=== PATIENT | male | born 1945 | race Caucasian/White ===

== ENCOUNTER 2017-04-05 06:14 | Inpatient (IN) | payer OTHER ==
[2017-03-18 11:30] VITALS: BMI 31.0
--- NOTE | 2017-03-18 12:10 | PAT Medication Instructions ---
Service Date Mar 18, 2017. Current Home Medication List Aspirin (Aspirin Ec), 81 MG PO QAM Atorvastatin (Lipitor), 40 MG PO QPM Clopidogrel (Plavix), 75 MG PO QPM Fish Oil ([place]-3), 1 CAP PO BID Furosemide (Lasix), 20 MG PO QAM Glimepiride (Glimepiride), 1 TAB PO QAM Metformin Hcl (Glucophage Ext Rel), 1,000 MG PO BID Metoprolol Tartrate (Lopressor) (Lopressor), 50 MG PO BID Multivitamins/Minerals (Mvi With Minerals), 1 TAB PO QAM Nifedipine Ext Rel (Procardia Xl Ext Rel), 90 MG PO QAM Nitroglycerin (Nitrostat), 0.4 MG UT PRN [Garlique], 1 TAB PO QAM [Milk Thistle], 2 TAB PO QAM Medication Instructions For Your Scheduled Surgery Clopidogrel (Plavix), 75 MG PO QPM (patient will check with chair car driver for instructions- let them know in order to get spinal anesthesia you have to be off Plavix for 7 days) Nitroglycerin (Nitrostat), 0.4 MG UT PRN (if needed) - Hold the following medications 2 weeks prior to surgery: Garlique 1 TAB PO QAM Milk Thistle 2 TAB PO QAM Fish Oil ([place]-3), 1 CAP PO BID - Hold the following medications 48 hours prior to surgery: Metformin Hcl (Glucophage Ext Rel), 1,000 MG PO BID - Hold the following medications the morning of surgery: Multivitamins/Minerals (Mvi With Minerals), 1 TAB PO QAM Furosemide (Lasix), 20 MG PO QAM Glimepiride (Glimepiride), 1 TAB PO QAM - Take the following medications the morning of surgery with a sip of water: Nifedipine Ext Rel (Procardia Xl Ext Rel), 90 MG PO QAM Metoprolol Tartrate (Lopressor) (Lopressor), 50 MG PO BID Aspirin (Aspirin Ec), 81 MG PO QAM - Take the following medications as scheduled the night before surgery: Metoprolol Tartrate (Lopressor) (Lopressor), 50 MG PO BID Atorvastatin (Lipitor), 40 MG PO QPM If you have any questions please call us at [phone] or [phone] ( [place]) or [phone]
[2017-03-18 13:37] LABS: BASO % 0.1 %; BASO ABS # 0.01 K/uL (0-0.2); COMPLETE YES; EOS % 2.4 %; LYMPH % 36.2 %; LYMPH ABS # 2.45 K/uL (1.2-3.4); MEAN CELL VOLUME 92.3 fL (80-100); MEAN CORPUSCULAR HEMOGLOBIN 31.5 pg (25-34); MEAN CORPUSCULAR HGB CONC 34.1 g/dl (32-36); MEAN PLATELET VOLUME 8.9 fL (7.4-10.4); MONO % 8.1 %; NEUT % 53.2 %; PLATELET COUNT 195 K/uL (130-400); RED BLOOD COUNT 4.44 M/uL (4.7-6.1); WHITE BLOOD COUNT 6.76 K/uL (4.8-10.8)
[2017-03-18 13:40] LABS: URINE APPEARANCE CLEAR (CLEAR); URINE BILIRUBIN NEG (NEG); URINE COLOR YELLOW; URINE NITRITE NEG (NEG); URINE SPECIFIC GRAVITY 1.017 (1.000-1.030); UROBILINOGEN NEG (NEG); ZZUR CULT IF INDIC CLEAN CATCH NO
[2017-03-18 13:50] LABS: MANUAL MICROSCOPIC REQUIRED? NO; REVIEW REQ? NO
[2017-03-18 13:51] LABS: PROTHROMBIN TIME (PATIENT) 10.9 SECONDS (9.0-12.0)
[2017-03-18 13:57] LABS: BUN/CREATININE RATIO 14.9 (10-20); CALCIUM 9.1 mg/dl (8.5-10.1); CREATININE 1.1 mg/dl (0.60-1.40); POTASSIUM 4.4 mmol/L (3.5-5.1)
[2017-03-18 14:02] LABS: ESTIMATED AVERAGE GLUCOSE 148 mg/dl; HA1C FLAG Normal (Normal)
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
[2017-04-05] VITALS (10 sets, daily range): BP systolic 125–167; BP diastolic 72–87; PULSE 54–74; TEMP 36.2–36.8; O2SAT 96–100; Ht 177.8 cm; Wt 97.5 kg
[~2017-04-05] VITALS: Ht 177.8 cm; Wt 97.5 kg
[2017-04-05] MEDS: VANCOMYCIN INJ 400 MG in NSS 100ML IR SCH ×2 (06:00→09:45)
[~2017-04-05 06:14] MED LIST: ACETAMINOPHEN 500 MG TAB PO SCH; ASPI81TA28 PO; ATOR-24 PO; CEFAZOLIN 2000 MG/60 ML D5W 60 ML IV SCH; CLOP1TAB15 PO; CeleBREX 200 MG CAP PO SCH; FAMOTIDINE 20 MG TAB PO SCH; FURO-85 PO; GABAPENTIN 300 MG CAP PO SCH; GARLIQUE PO; GLIM2TAB2 PO; LACTATED RINGER'S 1000ML 1,000 ML IV SCH; LACTATED RINGER'S 1000ML IV SCH; METF1TAB53 PO; METO50TA16 PO; METOCLOPRAMIDE HCL 10 MG TAB PO SCH; MILK THISTLE PO; MULT-513 PO; NIFE30TA83 PO; NTRGSL/4 UT; OMEG10007 PO; OXYCODONE HCL 10 MG TABCR (OXYCONTIN) PO SCH; ROPIVACAINE 5MG/ML 30 ML 150 MG, BUPIVACAINE/EPINEPHR 0.5% MPF 30 ML, KETOROLAC TROMETH... INFIL SCH
[2017-04-05] MEDS: TRANEXAMIC ACID INJ 1,000 MG in SODIUM CHLORIDE 0.9% 100ML 100 ML IV SCH ×2 (06:30→08:10)
[2017-04-05] MEDS ORDERED: BUPIVACAINE 0.5 % 5 MG/1 ML PF 10ML VIAL ONE (06:31)
[2017-04-05] MEDS ORDERED: FENTANYL CITRATE INJ 50 MCG/1 ML 2 ML VIAL ONE (06:39)
[2017-04-05] MEDS ORDERED: PROPOFOL IV EMULSION 10 MG/ML 20 ML VIAL IV ONE (06:39)
[2017-04-05] MEDS ORDERED: LIDOCAINE HCL 2% 2 ML VIAL (20MG/ML) ONE (06:39)
[2017-04-05] MEDS ORDERED: MIDAZOLAM HCL 1 MG/ML 2ML VIAL ONE (06:39)
--- NOTE | 2017-04-05 06:47 | History & Physical Bridge Note ---
H&P Re-Evaluation Bridge Note: I have examined the patient, reviewed the History & Physical and in the interval since the performance of the History & Physical I have noted the following changes of clinical significance: No changes noted
[2017-04-05] MEDS ORDERED: ORTHO JOINT ANESTHETIC ONE (07:01)
[2017-04-05] MEDS ORDERED: BUPIVACAINE/EPINEPHRINE 0.25% 1:200,000 30 ML VIAL ONE (07:01)
[2017-04-05] MEDS ORDERED: POVIDONE-IODINE OP SOLN 30 ML BTL ONE (07:01)
[2017-04-05] MEDS ORDERED: BACITRACIN 50000 UNIT VIAL ONE (07:02)
[2017-04-05] MEDS ORDERED: FENTANYL CITRATE INJ 50 MCG/1 ML 2 ML VIAL IV PRN (07:15)
[2017-04-05] MEDS ORDERED: EpHEDrine SULFATE INJ 50 MG/ML AMP IV PRN (07:15)
[2017-04-05] MEDS ORDERED: ONDANSETRON INJ 2 MG/ML 2 ML VIAL IV PRN ×2 (07:15→09:45)
[2017-04-05] MEDS ORDERED: ATROPINE SULFATE 0.1 MG/ML 5ML SYR IV PRN (07:15)
[2017-04-05] MEDS ORDERED: ASPIRIN 81 MG ECTAB PO ONE (07:27)
[2017-04-05] MEDS ORDERED: NURSING VERBAL MED ORDER ONE (07:45)
[2017-04-05] MEDS: POLYMYXIN B SULFATE 100,000 UNITS in NSS 100ML IR SCH ×2 (09:33→09:45)
[2017-04-05] MEDS: SODIUM CHLORIDE 0.9% 1000ML 1,000 ML IV SCH ×3 (09:40→21:41)
--- NOTE | 2017-04-05 09:40 | [facility] Post Operative Brief Note ---
Immediate Operative Summary Operative Date April 05, 2017. Pre-Operative Diagnosis Right knee degenerative joint disease Post-Operative Diagnosis same Procedure(s) Performed Right Total Knee Arthroplasty, Cemented Surgeon Dr. Dioni Howe Sanitation Lead Surgeon(s) Vincenzo Galdamez PA-C Estimated Blood Loss 5 ML Findings severe dz Specimens a. Right knee bone and tissue Complication(s) None Disposition Recovery Room / PACU
[2017-04-05] MEDS ORDERED: ALUMINUM/MAGNESIUM/SIMETH (MAALOX MAX) 30 ML UDC PO PRN (09:45)
[2017-04-05] MEDS ORDERED: ZOLPIDEM TARTRATE 5 MG TAB PO PRN (09:45)
[2017-04-05] MEDS ORDERED: BISACODYL 10 MG SUPP PR PRN (09:45)
[2017-04-05] MEDS ORDERED: TRAMADOL HCL 50 MG TAB PO PRN (09:45)
[2017-04-05] MEDS ORDERED: MoRPHine SULFATE 2 MG/ML CARP IV PRN (09:45)
[2017-04-05] MEDS ORDERED: SOD PHOSPHATE/SOD BIPHOSPHATE ENEMA 132 ML BTL PR PRN (09:45)
[2017-04-05] MEDS ORDERED: KETOROLAC TROMETHAMINE 15 MG/ML VIAL IV. PRN (09:45)
[2017-04-05] MEDS ORDERED: MAGNESIUM HYDROXIDE SUSP 30 ML UDC PO PRN (09:45)
[2017-04-05] MEDS ORDERED: DiphenhydrAMINE HCL 50 MG/ML VIAL IV PRN (09:45)
[2017-04-05] MEDS ORDERED: METOCLOPRAMIDE HCL INJ 5 MG/ML 2 ML VIAL IV PRN (09:45)
[2017-04-05] MEDS ORDERED: NITROGLYCERIN 0.4 MG SL PER TAB CHARGE UT PRN (09:45)
--- NOTE | 2017-04-05 12:16 | Anesthesiology Progress Note ---
Anesthesia Post Op Note Date & Time April 05, 2017 at 12:16 Vital Signs Pain Intensity: 0.0 Vital Signs Past 12 Hours Date Time Temp Pulse Resp B/P Pulse Ox O2 Delivery O2 Flow Rate FiO2 04/05/17 12:01 36.2 58 18 132/72 100 Nasal Cannula 2.0 04/05/17 11:32 59 19 129/75 98 Nasal Cannula 2.0 04/05/17 11:01 36.4 54 18 125/73 98 Nasal Cannula 2.0 04/05/17 11:00 98 Nasal Cannula 2.0 04/05/17 10:50 36.5 56 14 118/70 98 Nasal Cannula 2 04/05/17 10:40 56 12 117/69 100 Nasal Cannula 2 04/05/17 10:30 54 15 122/74 100 Mask 10 04/05/17 10:20 56 10 121/73 100 Mask 10 04/05/17 10:14 36 59 16 111/66 100 Mask 10 04/05/17 06:43 36.3 66 20 155/87 96 Room Air Notes Mental Status: alert / awake / arousable, participated in evaluation Pt Amnestic to Procedure: Yes Nausea / Vomiting: adequately controlled Pain: adequately controlled Airway Patency, RR, SpO2: stable & adequate BP & HR: stable & adequate Hydration State: stable & adequate Neuraxial Anesthesia: was administered, sensory block is resolving Anesthetic Complications: no major complications apparent
[2017-04-05] MEDS: ACETAMINOPHEN 500 MG TAB PO SCH ×2 (13:37→21:39)
[2017-04-05] MEDS ORDERED: TRANEXAMIC ACID INJ 1,000 MG in SODIUM CHLORIDE 0.9% 100ML 100 ML IV SCH (16:00)
[2017-04-05] MEDS: CEFAZOLIN IV 2,000 MG in DEXTROSE 5% 50ML 50 ML IV SCH ×2 (16:08→23:09)
[2017-04-05] MEDS: OXYCODONE HCL IR 5 MG TAB (IMMEDIATE RELEASE) PO PRN ×2 (16:08→16:48)
--- NOTE | 2017-04-05 17:32 | OPERATIVE REPORT ---
DATE OF OPERATION: 04/05/2017 PREOPERATIVE DIAGNOSIS: Degenerative arthritis, right knee. POSTOPERATIVE DIAGNOSIS: Same. PROCEDURE: Right total knee replacement. SURGEON: Dr. Howe. MASTER COASTWISE YACHT: ALICIA Murdock ANESTHESIA: Spinal. TOURNIQUET TIME: 75 minutes at 250 mmHg. DRAINS: Hemovac x2. CULTURES: None. COMPLICATIONS: None. COMPONENTS USED: [employer] Journey Knee System: Femur size 5, tibia size 5 x 11 constrained, patella size 35. NOTE: Vincenzo Galdamez was present and assisted throughout due to the complicated nature of this case. He helped with preparation and set up and first assisted throughout. He also personally closed the capsule, subcutaneous and skin layers and applied the postoperative dressing. DESCRIPTION OF PROCEDURE: Following satisfactory spinal, the patient was supine. A tourniquet was placed. The lower extremity was prepared with ChloraPrep and draped sterilely. It was decided to inflate the tourniquet because of a history of use of Plavix and low-dose aspirin. The patient seen to have bleeding when the local anesthetic was placed. The tourniquet was inflated. A midline incision was made with a median parapatellar arthrotomy. The knee showed severe grade 4 disease throughout with absence of the anterior cruciate ligament. The patient's tear cruciate ligament was excised, all osteophytes were excised. Using the IM alignment system with a 5 degree valgus cut, the distal femur was sized and shaped for a size 5 posterior stabilized component. When all cuts were completed, attention was turned to the tibia. The tibia was resected with the extramedullary alignment guide in neutral with a 3 degree posterior slope. The patella was freehand cut. Soft tissue balancing was completed and a trial reduction showed good tensioning stability on the collateral ligaments, stable range of motion, and the patella tracked well. The trial components were removed. The capsule was prepared with the orthopedic cocktail and after irrigation, the components were cemented using Simplex G cement. A Betadine soak was performed. After 5 minutes, the Betadine was irrigated. Two drains were placed. The arthrotomy was closed with a running suture of 0 V-Loc and reinforced with #1 Vicryl. The subcutaneous tissues were closed with 2-0 Vicryl and the skin with a running subcuticular stitch of 3-0 V-Loc. Dermabond and a dry dressing were applied. The tourniquet was deflated. The patient was returned to his bed in stable condition. I attest to the content of the Intraoperative Record and any orders documented therein. Any exceptio ns are noted below.
[2017-04-05] MEDS ORDERED: ATORVASTATIN 40 MG TAB PO SCH (21:00)
[2017-04-05] MEDS ORDERED: SENNA 8.6 MG TAB PO SCH (21:00)
[2017-04-05] MEDS: OXYCODONE HCL 10 MG TABCR (OXYCONTIN) PO SCH (21:39)
[2017-04-05] MEDS: METOPROLOL TARTRATE 50 MG TAB PO SCH (21:42)
[2017-04-06 03:10] VITALS: BP 152/67; PULSE 68; TEMP 36.6; O2SAT 98
[2017-04-06] MEDS: SODIUM CHLORIDE 0.9% 1000ML 1,000 ML IV SCH (05:31)
[2017-04-06] MEDS: ACETAMINOPHEN 500 MG TAB PO SCH ×2 (05:31→13:40)
[2017-04-06 06:21] LABS: HEMATOCRIT 36.4 % (42-52); MEAN CELL VOLUME 93.1 fL (80-100); MEAN CORPUSCULAR HEMOGLOBIN 31.7 pg (25-34); MEAN CORPUSCULAR HGB CONC 34.1 g/dl (32-36); MEAN PLATELET VOLUME 8.1 fL (7.4-10.4); PLATELET COUNT 148 K/uL (130-400); RED BLOOD COUNT 3.91 M/uL (4.7-6.1); WHITE BLOOD COUNT 10.19 K/uL (4.8-10.8)
[2017-04-06 06:58] LABS: BUN/CREATININE RATIO 15.1 (10-20); CALCIUM 8.2 mg/dl (8.5-10.1); CREATININE 0.82 mg/dl (0.60-1.40); POTASSIUM 4.3 mmol/L (3.5-5.1)
--- NOTE | 2017-04-06 07:42 | DIAGNOSTIC IMAGING REPORT ---
RIGHT KNEE 1 OR 2 VIEWS ROUTINE CLINICAL HISTORY: AP/LATERAL IN PACU RIGHT KNEE Right joint replacement COMPARISON: None. DISCUSSION: Status post total right knee replacement. Good contact between prosthetic and underlying bone. Surgical drains are in position. Expected soft tissue postoperative change. IMPRESSION: Anatomic alignment status post total right knee replacement Electronically signed by: Gerardo Allen M.D. 04/06/2017 7:40 AM Dictated Date/Time: 04/06/2017 7:40 AM
--- NOTE | 2017-04-06 07:49 | Orthopedic Progress Note ---
Orthopedic Progress Note Date of Service April 06, 2017. Subjective Post OP Day: 1 (R TKA ) Reports: feeling well, pain controlled w PO medications, Denies: SOB, chest pain , complaints, light headedness Objective calves soft nontender, N/V intact, dressing C/D/I, A&O x3, toes mobile, hemovac drainage (100 LAST SHIFT ) Date Time Temp Pulse Resp B/P Pulse Ox O2 Delivery O2 Flow Rate FiO2 04/06/17 03:10 36.6 68 16 152/67 98 Room Air 04/05/17 22:56 36.8 74 17 157/79 96 Room Air 04/05/17 21:35 70 152/80 04/05/17 20:45 Room Air 04/05/17 19:44 36.4 70 16 167/80 99 Room Air 04/05/17 16:09 Nasal Cannula 2.0 04/05/17 15:02 36.3 62 16 146/80 98 Nasal Cannula 2.0 04/05/17 13:59 36.3 60 20 145/84 97 Nasal Cannula 2.0 04/05/17 13:05 58 17 136/77 98 Nasal Cannula 2.0 04/05/17 12:01 36.2 58 18 132/72 100 Nasal Cannula 2.0 04/05/17 11:32 59 19 129/75 98 Nasal Cannula 2.0 04/05/17 11:01 36.4 54 18 125/73 98 Nasal Cannula 2.0 04/05/17 11:00 98 Nasal Cannula 2.0 04/05/17 11:00 Nasal Cannula 2.0 04/05/17 10:50 36.5 56 14 118/70 98 Nasal Cannula 2 04/05/17 10:40 56 12 117/69 100 Nasal Cannula 2 04/05/17 10:30 54 15 122/74 100 Mask 10 04/05/17 10:20 56 10 121/73 100 Mask 10 04/05/17 10:14 36 59 16 111/66 100 Mask 10 Laboratory Results 24 Hours: Test 04/06/17 06:00 Hematocrit 36.4 % Hemoglobin 12.4 g/dL Assessment & Plan Assessment: POD 1 TKA HX CAD W STENTS INSULIN DEP DM Plan: DOING WELL SUGARS CONTROLLED BACK ON BASELINE PLAVIX AND ASA HOME TODAY W HH DRESSING AND DRAIN OFF Inhouse Planning Pain Management: Celebrex, Oxycontin, PO Tylenol, Oxy IR DVT Prophylaxis: TEDs, SCDs, ASA, other (PLAVIX ) Discharge Planning Discharge Planning: home with home health Pain Management: Celebrex, Oxycontin, PO Tylenol, Oxy IR DVT Prophylaxis: TEDs, ASA, other (PLAVIX )
--- NOTE | 2017-04-06 07:52 | Discharge Instructions ---
Discharge Instructions Date of Service April 06, 2017. Admission Reason for Admission: Right Knee Degenerative Arthritis Discharge Discharge Diagnosis / Problem: sp right total knee Discharge Goals Goal(s): Decrease discomfort, Improve function, Increase independence Activity Recommendations Activity Limitations: per Instructions/Follow-up section . Instructions / Follow-Up Instructions / Follow-Up ACTIVITY RECOMMENDATIONS: SELF CARE INSTRUCTIONS AFTER TOTAL KNEE REPLACEMENT A. You may need to continue a physical therapy program after discharge from the hospital. There are several options available to you. Your doctor will assist you in selecting the best one for you. 1. An out-patient facility 2 to 3 times a week for therapy or home therapy. 2. Continue working on all exercises taught to you in the hospital. Your goals should be to increase bending of your knee to 90 degrees and beyond and to fully straighten your knee. B. You may progress at your own pace from walking with a walker or crutches to a cane; then to no assistive devices. C. Make walking a part of your daily routine. Be up as much as comfortable with rest periods throughout the day. Rest with leg elevation is very important. Use the ice wrap frequently for the first 3-4 weeks. D. There are no restrictions on activities. You may ride in a car, shop, participate in joint finisher and all social activities. E. Wear the long elastic stockings (SHELLY hose) 20 hours a day for 2 weeks after surgery. They can be removed several times a day for laundering and for a bath. F. You may shower, no tub baths until cleared by your doctor. SPECIAL CARE INSTRUCTIONS: VERY IMPORTANT TO READ AND REVIEW A. There are a few signs you need to watch for after you are home. Call [facility] if you notice any of the followin. Increased severe knee pain. Some pain is expected especially when you exercise. 2. Increased swelling in your leg or knee; pain or swelling of the calf muscle in either lower leg. 3. Any fluid drainage from the incision. 4. Shortness of breath or chest pain. B. Please call [facility] at if you have any concerns or questions about your operation or recovery. The doctor or his nurse will return your call promptly. C. You must take antibiotics before dental work, bladder, bowel or other surgery. Your doctor will provide you with a permanent care to carry describing this precaution. IMPORTANT: * REMEMBER TO TAKE ASPIRIN, 81 MG, ONCE DAILY FOR 4 WEEKS UNLESS OTHERWISE DIRECTED. THIS IS YOUR BLOOD THINNER. * HIGH RISK PATIENTS MAY BE PRESCRIBED A STRONGER BLOOD THINNER. THIS WILL BE PROVIDED AT DISCHARGE. - RESUME PLAVIX. * CALL IF INCREASED PAIN, REDNESS, DRAINAGE OR FEVER GREATER THAT 101. * WEAR SHELLY HOSE 20 HOURS PER DAY FOR 2 WEEKS. DERMABOND Prineo- This is a mesh tape dressing that is covered with glue. It should remain in place until the incision is properly healed, usually 10-14 days. This dressing is designed to naturally slough off. You may trim the excess mesh tape as it peels off. Incision may be briefly wet in a shower. Dry immediately by blotting with a clean, dry towel. Do not bath or swim until instructed by your doctor. Do not scratch, rub, or pick at the dressing. Do not apply any topical ointments or lotions until dressing is completely removed and/or instructed by your doctor. There may be a small piece of suture material at one end of your incision. Do not pull or trim this. If it is bothersome or catching on clothing, you may cover it with a band-aid. FOLLOW UP VISIT: If appointment is not already scheduled: Please call [facility] to make a follow-up appointment for 2 weeks after your surgery at . Current Hospital Diet Patient's current hospital diet: Diabetes Type 2 Diet Discharge Diet Recommended Diet: Regular Diet Procedures Procedures Performed: Right Total Knee Arthroplasty, Cemented Pending Studies Studies pending at discharge: no Laboratory Results Hemoglobin A1c Test 03/18/17 12:15 Range/Units Estimated Average Glucose 148 mg/dl Hemoglobin A1c 6.8 H 4.5-5.6 % Medical Emergencies . Who to Call and When: Medical Emergencies: If at any time you feel your situation is an emergency, please call 911 immediately. . Non-Emergent Contact Non-Emergency issues call your: Surgeon . "Provider Documentation" section prepared by Tori Rowley. . VTE Core Measure Inpt VTE Proph given/why not?: Other Anticoagulation, T.E.D. Stockings, SCD's [place] Drug Monitoring Program Search Results: patient reviewed within database, no issues identified
[2017-04-06] MEDS ORDERED: ACET-1138 PO (07:55)
[2017-04-06] MEDS ORDERED: RXC5 PO (07:55)
[2017-04-06] MEDS ORDERED: MORP-157 PO (07:55)
[2017-04-06] MEDS ORDERED: ONDA8TAB6 PO (07:55)
[2017-04-06] MEDS ORDERED: CLB200 PO (07:55)
[2017-04-06] MEDS ORDERED: SNK PO (07:55)
[2017-04-06 08:14] VITALS: BP 162/91; PULSE 70; TEMP 37.1; O2SAT 99
[2017-04-06] MEDS: OXYCODONE HCL IR 5 MG TAB (IMMEDIATE RELEASE) PO PRN (08:22)
[2017-04-06 08:24] VITALS: O2SAT 99
[2017-04-06] MEDS: OXYCODONE HCL 10 MG TABCR (OXYCONTIN) PO SCH (08:30)
[2017-04-06] MEDS: METOPROLOL TARTRATE 50 MG TAB PO SCH (08:31)
[2017-04-06] MEDS ORDERED: MULTIVITAMIN TAB PO SCH (09:00)
[2017-04-06] MEDS ORDERED: PANTOprazole SOD 40 MG TAB PO SCH (09:00)
[2017-04-06] MEDS ORDERED: ASPIRIN 81 MG ECTAB PO SCH (09:00)
[2017-04-06] MEDS ORDERED: FUROSEMIDE 20 MG TAB PO SCH (09:00)
[2017-04-06] MEDS ORDERED: GLIMEPIRIDE 2 MG TAB PO SCH (09:00)
[2017-04-06] MEDS ORDERED: NIFEdipine 30 MG CR TAB PO SCH (09:00)
--- NOTE | 2017-04-06 10:46 | Anesthesiology Progress Note ---
Anesthesia Post Op Note Date & Time April 06, 2017 at 10:46 Vital Signs Pain Intensity: 6.0 Vital Signs Past 12 Hours Date Time Temp Pulse Resp B/P Pulse Ox O2 Delivery O2 Flow Rate FiO2 04/06/17 08:24 99 Room Air 04/06/17 08:14 37.1 70 26 162/91 99 Room Air 04/06/17 07:33 Room Air 04/06/17 03:10 36.6 68 16 152/67 98 Room Air 04/05/17 22:56 36.8 74 17 157/79 96 Room Air Notes Mental Status: alert / awake / arousable, participated in evaluation Pt Amnestic to Procedure: Yes Nausea / Vomiting: adequately controlled Pain: adequately controlled Airway Patency, RR, SpO2: stable & adequate BP & HR: stable & adequate Hydration State: stable & adequate Neuraxial Anesthesia: was administered, sensory block resolved Anesthetic Complications: no major complications apparent
[2017-04-06 11:18] VITALS: BP 156/76; PULSE 72; TEMP 36.7; O2SAT 99
[2017-04-06 13:07] VITALS: BP 162/91; PULSE 72; TEMP 36.7; O2SAT 99
[2017-04-06] MEDS ORDERED: CLOPIDOGREL BISULFATE 75 MG TAB PO SCH (21:00)
[2017-04-07] MEDS ORDERED: CeleBREX 200 MG CAP PO SCH (09:00)
--- NOTE | 2017-04-09 15:00 | DISCHARGE SUMMARY ---
DISCHARGE DIAGNOSIS: Degenerative joint disease, right knee. SECONDARY DIAGNOSES: Diabetes mellitus, heart disease, hypercholesterolemia, hypertension. CONSULTS: None. COMPLICATIONS: None. PROCEDURES: Right total knee arthroplasty performed by Dr. Dioni Howe on 04/05/2017. BRIEF HISTORY: As dictated in the history and physical. HOSPITAL SUMMARY: The patient was admitted on the above-noted date and had the above-noted surgery performed which he tolerated well. On the first postoperative day, vital signs were stable, he was afebrile. Hemoglobin was 12.4. Dressings were intact. He was started on physical therapy protocol and continued on DVT prophylaxis and pain management. He was progressing well with his physical therapy and was otherwise remaining stable. It was felt that he could be discharged to home for further review, please see chart. LAB AND X-RAY DATA: As per chart. DISCHARGE INSTRUCTIONS: The patient was discharged to home in satisfactory condition on 04/06/2017. DIET: Diabetic. ACTIVITY: Follow TK instruction sheets and special care instructions as noted. Follow up with Dr. Dioni Howe in 2 weeks. The patient to call for appointment if one has not been made for you. DISCHARGE MEDICATIONS: Acetaminophen 1000 mg p.o. q. 8 hours, Celebrex 200 mg p.o. b.i.d., MS Contin 15 mg p.o. q. 12 hours, Zofran 8 mg p.o. q. 8 hours p.r.n., oxycodone 5-10 mg p.o. q. 4 hours p.r.n., senna 17.2 mg p.o. at bedtime. Resume meds at home including aspirin 81 mg p.o. q.a.m., atorvastatin 40 mg p.o. q.p.m., clopidogrel 75 mg p.o. q.p.m., fish oil 1 cap p.o. b.i.d., furosemide 20 mg p.o. q.a.m., glimepiride 2 mg p.o. q.a.m., metformin 1000 mg p.o. b.i.d., metoprolol 50 mg p.o. b.i.d., multivitamin 1 tab p.o. q.a.m., nifedipine extended release 90 mg p.o. q.a.m., nitroglycerin 0.4 mg under tongue p.r.n., Garlique 1 tab p.o. q.a.m. and milk thistle 2 tabs p.o. q.a.m.
== END 2017-04-06 13:56 | disposition home health service (06) | DRG 470 ==
LOC: ENRESERVTM → ENRESERVDT → C.ACU 06:14 → C.3E 06:30
PROVIDERS: ADMIT Orthopaedic Surgery; ATTEND Orthopaedic Surgery
PROC: 0SRC0J9 Replacement of Right Knee Joint with Synthetic Substitute, Cemented, Open Approach (ICD-10-PCS; principal; 2017-04-05 08:15)
DX: M17.11 Unilateral primary osteoarthritis, right knee (principal); E11.9 Type 2 diabetes mellitus without complications; I10 Essential (primary) hypertension; E78.00 Pure hypercholesterolemia, unspecified; I25.10 Atherosclerotic heart disease of native coronary artery without angina pectoris; E66.9 Obesity, unspecified; Z79.899 Other long term (current) drug therapy; Z79.84 Long term (current) use of oral hypoglycemic drugs; Z79.82 Long term (current) use of aspirin; Z79.02 Long term (current) use of antithrombotics/antiplatelets; Z68.30 Body mass index [BMI] 30.0-30.9, adult